=== PATIENT | female | born 1975 | race Asian ===

== ENCOUNTER 2017-07-31 22:34 | Emergency (ER) | payer SELFPAY ==
[~2017-07-31] VITALS: Ht 167.6 cm; Wt 59.0 kg
--- NOTE | 2017-07-31 22:38 | Emergency Room Report ---
History of Present Illness General Chief Complaint: Abdominal Pain Source: Patient Present Illness HPI The patient states that she is reacting to gluten exposure and has gluten allergy. She usually uses an EpiPen but has run out. She feels swelling in her throat and also nausea and discomfort in her stomach. She denies any wheezing or shortness of breath. This is not the most severe reaction she has had. She sometimes has just abdominal cramping in response to gluten. She has had medications to treat this in the past. No fevers, vomiting, diarrhea. dysuria. She states she is not . She is anxious. Allergies: Coded Allergies: No Known Allergies (Unverified , 07/31/17) Patient History Past Medical History: see triage record Social History: Denies: smoking, alcohol use, drug use Social History Narrative at home Last Menstrual Period: 1 week ago Now: No Reviewed Nursing Documentation: PMH: Agreed, PSxH: Agreed Nursing Documentation-PMH Past Medical History: No Stated History Review of Systems All Other Systems: negative except mentioned in HPI Physical Exam Vital Signs Date Time Temp Pulse Resp B/P (MAP) Pulse Ox O2 Delivery O2 Flow Rate FiO2 07/31/17 22:31 98.2 88 16 92/72 99 Room Air Sp02 EP Interpretation: reviewed, normal General Appearance: well appearing, no apparent distress, GCS 15 Head: normocephalic Eyes: bilateral eye normal inspection, bilateral eye PERRL ENT: normal pharynx, no angioedema, normal voice, moist mucus membranes Neck: supple, other - no stidor Respiratory: chest non-tender, lungs clear, normal breath sounds Cardiovascular #1: regular rate, rhythm Cardiovascular #2: 2+ radial (R) Gastrointestinal: normal inspection, normal bowel sounds, non tender - but reported cramping, no mass, non-distended Musculoskeletal: back normal, gait/station normal, normal range of motion Neurologic: alert, oriented x3, grossly normal Psychiatric: depressed affect Skin: normal inspection, warm/dry Medical Decision Making Diagnostic Impression: Primary Impression: Allergic reaction Qualified Codes: T78.40XA - Allergy, unspecified, initial encounter Additional Impression: Gluten intolerance ER Course Patient states having allergic reaction to gluten. Ddx: allergy, anaphylaxis, IBS, anxiety, viral syndrome amongst others. Patient states needs epi - will give with monitoring and evaluate labs and observe patient. Labs not indicated. 0:52 Improved, but states wants to wait. C/O body pain. Tylenol ordered. Also wanted Bentyl, but states it "knocks me out". Mylanta ordered. Wants to stay in ED until 5:30-6. Patient stable for outpatient observation and treatment. Rhythm Strip Diag. Results EP Interpretation: yes Rhythm: NSR, no PVC's, no ectopy Last Vital Signs Date Time Temp Pulse Resp B/P (MAP) Pulse Ox O2 Delivery O2 Flow Rate FiO2 08/01/17 05:40 97.3 96 16 59/55 100 Room Air This blood pressure was recorded in error. Blood pressure actually 99/55. Status: improved Disposition: HOME, SELF-CARE Condition: Improved Scripts Dicyclomine Hcl* (BENTYL*) 10 Mg Capsule 10 MG ORAL FOUR TIMES A DAY Y for cramps, #10 CAP Prov: Davidson Zurita M.D. 08/01/17 Diphenhydramine Hcl* (BENADRYL*) 25 Mg Capsule 25 MG ORAL Q6H Y for Itching, #14 CAP Prov: Davidson Zurita M.D. 08/01/17 Prednisone* (PREDNISONE*) 20 Mg Tablet 20 MG ORAL DAILY, #5 TAB Prov: Davidson Zurita M.D. 08/01/17 Davidson Zurita M.D. Jul 31, 2017 22:38
[2017-07-31] MEDS ORDERED: EPINEPHrine 1mg/1ml Amp SUBQ ONE (22:45)
[2017-07-31 23:15] VITALS: BP 94/56
[2017-08-01 00:32] VITALS: BP 108/56
[2017-08-01] MEDS ORDERED: BENTYL10 MG ORAL (03:06)
[2017-08-01] MEDS ORDERED: PREDNISONE20 MG ORAL (03:06)
[2017-08-01] MEDS ORDERED: BENADRYL25 MG ORAL (03:06)
[2017-08-01 03:15] VITALS: BP_SYST 102; BP_SYST 88; BP_DIAS 56
[2017-08-01] MEDS ORDERED: Mylanta II UD 30ml ORAL ONE (03:15)
[2017-08-01 05:13] VITALS: BP_SYST 100; BP_SYST 59; BP_DIAS 55
[2017-08-01 05:40] VITALS: BP 59/55
== END 2017-08-01 05:40 | disposition home or self-care (01) ==
LOC: EDBD 22:34 → EMR 22:45
DX: T78.40XA Allergy, unspecified, initial encounter (principal); K90.41 Non-celiac gluten sensitivity; R11.0 Nausea; X58.XXXA Exposure to other specified factors, initial encounter; Y93.9 Activity, unspecified; Y92.9 Unspecified place or not applicable
CPT/HCPCS: 99284; J0171; J8540